=== PATIENT | female | born 1990 | race African-American/Black ===

== ENCOUNTER 2019-06-18 13:07 | Emergency (ER) | payer OTHER ==
[~2019-06-18] VITALS: Ht 167.6 cm; Wt 61.2 kg
[~2019-06-18 13:07] MED LIST: BACTRIM DS TAB1 EACH PO; IBUPROFEN 600600 M1 PO; NAPROSYN500 MG PO; NOHOMEMEDICATIONS; NORCO 5-325 TA1 EACH PO; PENICILLIN V P500 MG PO
[2019-06-18 13:22] LABS: ABSOLUTE NEUTROPHILS 5.1 thou/uL (1.4-8.2); BASOPHILS 0.8 % (0.0-2.0); EOSINOPHILS 1.4 % (0.0-3.0); HEMATOCRIT 29.1 % (37.0-47.0); HEMOGLOBIN 9.4 gm/dL (12.0-15.0); LYMPHOCYTES 24.6 % (24.0-44.0); MCH 26.5 pg (26.0-34.0); MCHC 32.2 g/dL (28.0-37.0); MCV 82.1 fL (80.0-100.0); PLATELET COUNT 295 thou/uL (150-400); POLYS 62.2 % (36.0-66.0); RBC 3.55 mil/uL (4.20-5.00); RDW 20.7 % (10.5-14.5); WBC 8.1 thou/uL (4.0-11.0)
[2019-06-18 13:32] LABS: ANION GAP 13 mmol/L (7-16); BUN 6 mg/dL (7-18); CALCIUM 8.9 mg/dL (8.5-10.1); CHLORIDE 100 mmol/L (98-107); CO2 20 mmol/L (21-32); CREATININE 0.6 mg/dL (0.6-1.0); GLUCOSE 78 mg/dL (74-106); POTASSIUM 3.7 mmol/L (3.5-5.1); SODIUM 133 mmol/L (136-145)
[2019-06-18 13:42] LABS: MAGNESIUM 1.6 mg/dL (1.8-2.4); SGOT 20 U/L (15-37); SGPT 12 U/L (30-65); TOTAL BILIRUBIN 0.8 mg/dL (<0.1-1.0); TOTAL PROTEIN 7.9 g/dL (6.4-8.2); TROPONIN-I <0.06 ng/mL (<0.06)
[2019-06-18 14:13] LABS: AMP/METHAMP Negative (Negative); BARBITURATES Negative (Negative); BENZODIAZEPINES Negative (Negative); COCAINE Negative (Negative); METHADONE Negative (Negative); OPIATES Negative (Negative); PCP Negative (Negative)
[2019-06-18 14:30] LABS: APTT 27.7 Seconds (24.5-32.8); PROTIME 9.4 Seconds (9.3-11.4)
[2019-06-18 14:31] LABS: ANISOCYTOSIS 1+
[2019-06-18 14:35] VITALS: BP 140/89
--- NOTE | 2019-06-18 16:18 | EKG ---
[place] [address] [facility] [place] [address] ELECTROCARDIOGRAM REPORT Name: ADORE CONWAY [id number] Admission: 06/18/19 Attend Phys: Discharge: 06/18/19 Date of : 88 Report #: [id number] THIS REPORT FOR: //name// [facility] ED Test Date: 2019-06-18 Test Time: 13:08:05 Pat Name: ADORE CONWAY Department: Room: Gender: F Scale Agent: : 1990 Requested By: Joselito Mendoza Order Number: [id number] MD: Nahum Louis Measurements Intervals [place] Rate: 128 P: ND: QRS: 63 QRSD: 81 T: 33 QT: 308 QTc: 450 Interpretive Statements Supraventricular tachycardia Minimal ST depression No previous ECG available for comparison Electronically Signed On 06-18-2019 16:18:42 CDT by Nahum Louis [email or web address] <ELECTRONICALLY SIGNED> By: Nahum Louis MD, [facility] 06/18/19 1618 1308 1308 Nahum Louis MD, FACC /EPI
== END 2019-06-18 14:35 | disposition short-term general hospital (02) ==
LOC: ER 13:07
PROVIDERS: Emergency Medicine
DX: O26.893 Other specified pregnancy related conditions, third trimester (principal); R07.9 Chest pain, unspecified; Z88.1 Allergy status to other antibiotic agents